=== PATIENT | female | born 1990 | race Hispanic/Latino ===

== ENCOUNTER 2018-05-12 06:31 | Outpatient (CLI) | payer MEDICAID ==
--- NOTE | 2018-05-12 08:39 | ULT ---
PELVIC ULTRASOUND: Date: 05/12/18 COMPARISON: None. HISTORY: Pelvic pain along the edges of the scar that was performed in August 2017. Intermittent pain with intercourse. Vaginal bleeding for 2 months. TECHNIQUE: Multiplanar Aviles scale and color Doppler images were obtained in a transabdominal and transvaginal pe lvic ultrasound. Spectral analysis of the Doppler waveforms of the ovaries were performed. FINDINGS: The uterus is normal size without focal abnormality. The endometrial stripe is normal in thickness, m easuring 8.0 mm. No free fluid is seen in the pelvis. Neither ovary was able to be visualized. A hypo echoic structure is seen in the left aspect of the pelvis measuring 2.2 cm in size. This may represen t a pelvic lymph node. This does not have the appearance of an ovary. No fluid collection is seen memo ng the patient's abdominal scar. IMPRESSION: No significant intrapelvic abnormality. POS: VIANCA
== END 2018-05-12 06:32 | disposition home or self-care (01) ==
LOC: BICULT 06:31
PROVIDERS: ATTEND Advanced Practice Midwife
DX: R10.2 Pelvic and perineal pain (principal)
CPT/HCPCS: 76856

== ENCOUNTER 2018-08-22 15:33 | Outpatient (CLI) | payer MEDICAID ==
--- NOTE | 2018-08-22 17:11 | ULT ---
TRANSABDOMINAL AND TRANSVAGINAL PELVIC ULTRASOUND: 08/22/18 INDICATION: Pelvic pain for six months when lifting something heavy. COMPARISON: Prior exam dated 05/12/18. TECHNIQUE: Aviles scale and color Doppler images were obtained of the pelvis via transabdominal and transvaginal a pproach. FINDINGS: The adnexa were not seen. The uterus measures 7.3 x 3.5 x 5.2 cm. The endometrial stripe measures 0.8 cm. No free fluid is identified. IMPRESSION: 1. Limited ultrasound examination due to bowel gas limiting visualization of the ovaries. 2. Visualized uterus is normal appearing. 3. No free fluid is demonstrated. POS: CET
== END 2018-08-22 15:34 | disposition home or self-care (01) ==
LOC: BICULT 15:33
PROVIDERS: ATTEND Advanced Practice Midwife
DX: R10.2 Pelvic and perineal pain (principal)
CPT/HCPCS: 76856

== ENCOUNTER 2019-05-25 18:26 | Emergency (ER) | payer MEDICAID, OTHER ==
[2019-05-25 20:01] LABS: Bacteria/HPF None Seen HPF (None Seen); Squamous Epithelial 0-3 HPF (0-3); WBC/HPF 0-3 HPF (0-3)
[2019-05-25 20:08] LABS: Bilirubin Negative (Negative); Blood, Urine Trace (Negative); Glucose, Urine (Dipstick) Negative (Negative); Leukocyte Negative (Negative); Nitrite Negative (Negative); Protein, Urine (Dipstick) Negative (Neg-Trace); Urobilinogen 0.2 mg/dL (Less than 2)
[2019-05-25 20:12] LABS: Clarity Clear (Clear)
== END 2019-05-25 20:25 | disposition home or self-care (01) ==
LOC: ERS 18:26
DX: O9A.211 Injury, poisoning and certain other consequences of external causes complicating pregnancy, first trimester (principal); S30.1XXA Contusion of abdominal wall, initial encounter; Z3A.11 11 weeks gestation of pregnancy
CPT/HCPCS: 81003; 81015

== ENCOUNTER 2019-06-04 18:51 | Emergency (ER) | payer OTHER | END 2019-06-04 20:35 | disposition home or self-care (01) | LOC: ERS 18:51 | DX: O98.511 Other viral diseases complicating pregnancy, first trimester (principal); B34.9 Viral infection, unspecified; O99.011 Anemia complicating pregnancy, first trimester; Z3A.12 12 weeks gestation of pregnancy | CPT/HCPCS: 87081; 87430; 87804; 99283 ==

== ENCOUNTER 2019-10-04 16:21 | Day surgery (SDC) | payer OTHER ==
--- NOTE | 2019-10-04 17:35 | PDOC.FPROB ---
FMR OB H&P: HPI - History of Present Illness Chief Complaint: suprapubic pressure History of Present Illness: Pt is a 28 yo at 30.1 wks who presented with suprapubic pressure. She states that the pressure has been present for 1 week but has gotten worse. She denies any radiation of the pain or contractions. She also c/o white vaginal discharge, pain with sex, and vaginal itching. No leakage of fluid or vaginal bleeding. Primary Care Physician: PNC FMR OB H&P: Current - Care : 2 Para: 1 Gestational age: 30.1 Due date: 12/12/19 Dating Criteria: unknown FMR OB H&P: History - Past Medical History PMH: none - OB History OB History: previous ended with CS at 39wks - Surgical History Sx History: CS 2018 FMR OB H&P: Medications - Current Allergies/Adverse Reactions: Allergies Allergy/AdvReac Type Severity Reaction Status Date / Time No Known Allergies Allergy Verified 10/04/19 16:41 FMR OB H&P: ROS - Review of Systems General: denies: fever/chills, fatigue Eyes: reports: floaters. denies: eye pain ENT: denies: nasal congestion, rhinorrhea Cardiovascular: denies: chest pain, palpitation Respiratory: denies: cough, shortness of breath Gastrointestinal: denies: abdominal pain, nausea, vomiting Genitourinary (Female): reports: vaginal discharge. denies: dysuria, polyuria, vaginal bleeding Musculoskeletal: denies: pain, stiffness Neurologic: denies: numbness, syncope Integumentary: denies: itching, rash Breast: denies: skin changes, pain/tenderness Endocrine: denies: polydipsia, polyuria Hematologic/Lymphatic: denies: prolonged or excessive bleeding FMR OB H&P: Vital Signs - Maternal Vital signs: 103/59, 92, 98%, 98.1F - Heart Tones Baseline: 140 Variability: moderate Acceleration: absent Deceleration: absent Category: category 1 FMR OB H&P: Physical Exam - Physical Exam General: NAD HEENT: normocephalic and atraumatic, grossly normal vision, grossly normal hearing Neck: supple, trachea midline Chest: non-tender to palpation Breast: symmetric Heart: RRR, no murmurs/rubs/gallops General: CTAB, no respiratory distress Abdomen: gravid, non-tender Musculoskeletal: normal gait and station, pulses present Neurological: cranial nerves II through XII intact Skin: no rash, good tugor Lymphatic: no unusual bruising or bleeding Psychiatric: normal mood and affect FMR OB H&P: A/P Discussion: Date/Time: 10/04/19 1729 Pt is a 28yo F at 30.1 wks who presents with suprapubic pressure Suprapubic Pressure -likely due to normal changes of -ordered UA Vaginal Discharge -ordered VP3 and GC/Chlamydia This H&P was discussed with [Jeancarlos] and [] who agree with the above documentation and plan. Addendum - Attending - Attending Attestation Date/Time: 10/04/192006 I personally evaluated the patient and discussed the management with Dr. Woodall I agree with the History, Examination, Assessment and Plan documented above with any addition or exceptions noted below - 28 yo @30.1 weeks presents c/o suprapubic pressure x 1 week; worse today. Denies any dysuria or fever. (+) vaginal itching and white discharge. (+) FM. Denies LOF, VB. Afebrile VSS. Exam repeated by me and agree with resident's findings. Category 1 FHTs. Labs: U/A (+) LE, (+) WBC, 1+ bacteria; VP3 (+) BV and cat. A/P: 1) UTI/BV/Cat- stable for discharge; Prescriptions for Amoxil, Flagyl, and Terazol cream.
[2019-10-04 18:40] LABS: Bilirubin Negative (Negative); Blood, Urine Negative (Negative); Clarity Clear (Clear); Glucose, Urine (Dipstick) Normal (Negative); Ketone, Urine Negative (Negative); Leukocyte 250 Leu/uL (Negative); Nitrite Negative (Negative); Protein, Urine (Dipstick) Negative (Neg-Trace); RBC/HPF 0-3 HPF (0-3); Urobilinogen Normal mg/dL (Less than 2)
[2019-10-04 18:49] LABS: Bacteria/HPF 1+ HPF (None Seen); Squamous Epithelial 0-3 HPF (0-3)
[2019-10-04 18:50] LABS: Urine Culture Reflex Yes Yes
== END 2019-10-04 20:20 | disposition home or self-care (01) ==
LOC: L&D/OP 16:21
PROVIDERS: ATTEND Family Medicine
DX: O99.89 Other specified diseases and conditions complicating pregnancy, childbirth and the puerperium (principal); R10.30 Lower abdominal pain, unspecified; O98.813 Other maternal infectious and parasitic diseases complicating pregnancy, third trimester; B37.3 Candidiasis of vulva and vagina; O23.593 Infection of other part of genital tract in pregnancy, third trimester; B96.89 Other specified bacterial agents as the cause of diseases classified elsewhere; O34.219 Maternal care for unspecified type scar from previous cesarean delivery; Z3A.30 30 weeks gestation of pregnancy
CPT/HCPCS: 81001; 87086; 87480; 87491; 87510; 87591; 87660

== ENCOUNTER 2019-12-05 20:26 | Day surgery (SDC) | payer MEDICAID, OTHER ==
[2019-12-05 20:57] VITALS: BMI 31.9
--- NOTE | 2019-12-05 21:59 | PDOC.BPN ---
- Brief Progress Note Encounter Date: 12/05/19 Encounter Time: 21:55 OBGYN Faculty L&D Triage Patient seen by me Discussed with Resident team. 28 yo G1 at 39 weeks with no personal HX of HSV but apparently is on suppression beacuse her partner has a HX. Here with poss CTX. Has noticed moist underwear but no gush of fluid. HX reviewed in detail (see resident notes) NST reactive, irreg CTX/ut irritability Assessment: 39 week patient of the [facility] here for possible labor. , CS x1. Plan: 1. confirm no active lesions (no personal HX). I reviewed ACOG protocol with residents (suppression only for patients with HX not just becuase partner has HX ) 2. SSE 3. Amnisure 4. If no evidence labor or ROM, keep scheduled CS this week
[2019-12-05] MEDS ORDERED: hydrALAZINE 20 MG/ML VIAL SLOW IVP PRN (22:21)
[2019-12-05 22:34] LABS: Amnisure Test No Membranes Rupture (No Rupture)
[2019-12-05 22:35] LABS: Amnisure Internal Control QC ACCEPTABLE (ACCEPTABLE)
--- NOTE | 2019-12-06 00:56 | PDOC.FPROB ---
FMR OB H&P: HPI - History of Present Illness Chief Complaint: Contractions Indentification: 28 y/o @ 39.0 wga dated by LMP History of Present Illness: This is a 28 y/o @ 39.0 wga dated by LMP who presented this evening with contractions that began this AM around 5:30 and last until about 7:30AM today. After the morning, she has been feeling contractions off and on but denied VB, VD, and when asked about LOF, she stated that she noticed this morning her underwear was "wet" but was unsure if this was due to sweat or a true gush of fluid. She has been able to feel baby move today. Denies HTN or DM in this . Does state that her partner has HSV, however, she has not had any symptoms or lesions. She has not been on any PPX of medication. Other than having a UTI, this has been uncomplicated. She has denied urinary symptoms, fever/chills, CP/SOB, MARROQUIN, vision changes/blurry vision. She states that she has a csection planned this week on 12/07. Primary Care Physician: PCP: Jose Elias FMR OB H&P: Current - Care : 2 Para: 1 Gestational age: 39.0 Due date: 12/12/19 - OB Labs HIV: negative RPR: negative HepBsAg: negative Rubella: immune Urine drug screen: negative Gonorrhea: negative Chlamydia: negative FMR OB H&P: History - Past Medical History PMH: none - OB History OB History: - in 2018 due to AOD - Surgical History Sx History: -csection 2018 - Social History Social History: - no tobacco, drug, etoh use - Family History Family History: none FMR OB H&P: Medications - Current Home Medications: Medication Instructions Recorded Confirmed Type Pnv No.95/Ferrous Fum/Folic AC 1 tab PO DAILY 12/05/19 12/05/19 History [ Caplet] Allergies/Adverse Reactions: Allergies Allergy/AdvReac Type Severity Reaction Status Date / Time No Known Allergies Allergy Verified 12/05/19 20:53 FMR OB H&P: ROS - Review of Systems General: denies: fever/chills Eyes: denies: eye pain, vision changes ENT: denies: nasal congestion, rhinorrhea, ear pain Cardiovascular: denies: chest pain, palpitation, edema Respiratory: denies: cough, congestion, shortness of breath Gastrointestinal: denies: abdominal pain, indigestion, bloating, diarrhea, constipation, bright red blood Genitourinary (Female): reports: contractions. denies: incontinence, dysuria, hematuria, polyuria, vaginal discharge, vaginal pain, vaginal bleeding, vaginal pressure Musculoskeletal: denies: pain, stiffness, tenderness Neurologic: denies: numbness, headache FMR OB H&P: Vital Signs - Maternal Vital signs: 111/61 BP, HR 70, RR 12 - Heart Tones Baseline: 140 Variability: moderate Category: category 1 Dora contractions every: initially had 5 contractions 3 min apart, then none FMR OB H&P: Physical Exam - Physical Exam General: NAD, awake, alert and oriented HEENT: normocephalic and atraumatic, PERRLA Neck: supple Chest: non-tender to palpation Heart: RRR, normal S1/S2, no murmurs/rubs/gallops General: CTAB, no respiratory distress, good air movement, no rales/rhonchi, no wheezing, no retractions Abdomen: soft, gravid - Pelvic Exam Vulva: no masses, no lesions, no discharge Cervix: no masses, no lesions, no blood SVE: /-2 Membranes: intact, no fluid noted on sterile speculum exam, physiologic discharge note FMR OB H&P: Results - Labs Lab results: Laboratory Results - last 24 hr 12/05/19 22:03 Amnio Swab Test No Membranes Rupture FMR OB H&P: A/P Discussion: Date/Time: [birth year]06/1954 This is a 28 y/o @ 39.0 wga dated by LMP who presents with feeling contractions today. ## Term - category 1 with minimal/infrequent contractions - sterile spec exam revealed no fluid at cervix - SVE revealed /-2 - amnisure pending - sono from 07/2019 showed large placental garcia behind placenta, Hadlock 66% ## Partner with HSV -denies personal hx of HSV, or current symptoms -pt denies being on PPX medication currently for this ## Anemia of -found on routine 3T labs -continue with vitamins ## Hx of Chorioaminitis -previous pt had intrapartum fever after prolonged ROM This H&P was discussed with Dr. Stockton and Dr. Hernández who agree with the above documentation and plan. Addendum: Patient was checked again 2 hours after initial encounter. SVE was unchanged. No contractions on strip. Category 1. Amnisure negative. Will discharge with ER/labor precautions. Planned for 12/07, advised patient to come back before then if anything changes. Pt agreeable to plan.
== END 2019-12-06 01:50 | disposition home or self-care (01) ==
LOC: L&D/OP 20:26
PROVIDERS: ATTEND Family Medicine
DX: O47.1 False labor at or after 37 completed weeks of gestation (principal); O99.013 Anemia complicating pregnancy, third trimester; D64.9 Anemia, unspecified; O34.219 Maternal care for unspecified type scar from previous cesarean delivery; Z3A.39 39 weeks gestation of pregnancy; Z87.440 Personal history of urinary (tract) infections
CPT/HCPCS: 84112

== ENCOUNTER 2019-12-08 04:42 | Inpatient (IN) | payer OTHER ==
[2019-12-08 05:24] VITALS: BMI 31.9
[2019-12-08] MEDS ORDERED: Ondansetron PF 4 MG/2 ML Vial IVP PRN ×3 (05:28→11:03)
[2019-12-08] MEDS ORDERED: hydrALAZINE 20 MG/ML VIAL SLOW IVP PRN ×2 (05:28→11:03)
[2019-12-08] MEDS ORDERED: Acetaminophen 500 MG TAB PO PRN (05:28)
[2019-12-08] MEDS ORDERED: Promethazine HCl 25 MG/ML VIAL IM PRN ×3 (05:28→11:03)
[2019-12-08] MEDS ORDERED: Bicitra 30 ML UDCUP PO SCH (05:30)
[2019-12-08] MEDS ORDERED: Lactated Ringer's 1,000 ML IV SCH (05:30)
[2019-12-08 05:58] LABS: Hemoglobin 12.2 g/dL (12.0-16.0); Mean Corpuscular HGB CONC 32.7 g/dL (32.0-36.0); Mean Corpuscular Hemoglobin 29.5 pg (27.0-31.0); Mean Corpuscular Volume 90.1 fL (78.0-98.0); Mean Platelet Volume 9.5 fL (7.4-10.4); Platelet Count 168 thou/uL (130-400); RBC Distribution Width 13.3 % (11.5-14.5); Red Blood Cell (RBC) Count 4.12 mill/uL (4.20-5.40); White Blood Cell (WBC) Count 9.8 thou/uL (4.8-10.8)
--- NOTE | 2019-12-08 06:18 | PDOC.FPROB ---
FMR OB H&P: HPI - History of Present Illness Chief Complaint: 28 y/o @ 39.2 wga dated by LMP History of Present Illness: This is a 28 y/o @ 39.2 wga dated by LMP who presented today for repeat LCS. She states that since she was last here on the 12/05, she has been doing well. Feeling contractions occasionally. No CP/SOB, headache, vision changes/ blurry vision/scotomoas. No LOF, VB, VD. No other questions or complaints at this time. Primary Care Physician: SONGC: Jose Elias FMR OB H&P: Current - Care : 2 Para: 1 Gestational age: 39.2 Due date: 12/11 Dating Criteria: LMP - OB Labs HIV: negative RPR: negative HepBsAg: negative Rubella: immune Urine drug screen: negative Gonorrhea: negative Chlamydia: negative FMR OB H&P: History - Past Medical History PMH: -none - OB History OB History: -csection in 2018 due to AOD - Surgical History Sx History: -c section in 2018 - Social History Social History: no tobacco, drug, etoh use - Family History Family History: -unremarkable FMR OB H&P: Medications - Current Home Medications: Medication Instructions Recorded Confirmed Type Pnv No.95/Ferrous Fum/Folic AC 1 tab PO DAILY 12/05/19 12/08/19 History [ Caplet] Allergies/Adverse Reactions: Allergies Allergy/AdvReac Type Severity Reaction Status Date / Time No Known Allergies Allergy Verified 12/05/19 20:53 FMR OB H&P: ROS - Review of Systems General: denies: fever/chills Eyes: denies: eye pain, vision changes, double vision, scotomas ENT: denies: rhinorrhea, ear pain Cardiovascular: denies: chest pain, palpitation Respiratory: denies: cough, congestion, shortness of breath Gastrointestinal: denies: abdominal pain, indigestion, bloating, cramping, vomiting, constipation, bright red blood Genitourinary (Female): reports: contractions. denies: incontinence, dysuria, hematuria, polyuria, vaginal discharge, vaginal pain, vaginal bleeding, vaginal mass/sore, vaginal pressure Musculoskeletal: denies: pain, stiffness, tenderness Integumentary: denies: itching, rash FMR OB H&P: Vital Signs - Maternal Vital signs: Vital Signs - First Documented Temp Pulse Resp BP Pulse Ox 98.3 F 93 16 119/57 L 97 12/08/19 05:18 12/08/19 05:18 12/08/19 05:18 12/08/19 05:18 12/08/19 05:18 - Heart Tones Baseline: 150 Category: category 1 FMR OB H&P: Physical Exam - Physical Exam General: NAD, awake, alert and oriented HEENT: normocephalic and atraumatic, PERRLA, MMM Neck: supple Chest: non-tender to palpation Heart: RRR, normal S1/S2, no murmurs/rubs/gallops General: CTAB, no respiratory distress, good air movement, no rales/rhonchi, no wheezing Abdomen: gravid Musculoskeletal: normal gait and station, pulses present, no misalignment/ asymmetry Skin: no rash, good tugor, capillary refill <2 seconds, no jaundice Psychiatric: intact recent and remote memory, good judgement and insight, normal mood and affect FMR OB H&P: Results - Labs Lab results: Laboratory Results - last 24 hr 12/08/19 05:47 WBC 9.8 RBC 4.12 L Hgb 12.2 Hct 37.2 MCV 90.1 MCH 29.5 MCHC 32.7 RDW 13.3 Plt Count 168 MPV 9.5 FMR OB H&P: A/P Discussion: Date/Time: 12/08/19 0616 This is a 28 y/o @ 39.2 wga dated by LMP who presents with feeling contractions today. ## Term - here for rLCS - category 1 with minimal/infrequent contractions - sono from 07/2019 showed large placental garcia behind placenta, Hadlock 66% - maternal labs neg ## Partner with HSV -denies personal hx of HSV, or current symptoms -pt denies being on PPX medication currently for this ## Anemia of -found on routine 3T labs -continue with vitamins ## Hx of Chorioaminitis -previous pt had intrapartum fever after prolonged ROM Plan: rLCS this AM at 7:30. This H&P was discussed with Dr. Merlos who agree with the above documentation and plan. Addendum - Attending - Attending Attestation Date/Time: 12/08/19 1040 I personally evaluated the patient and discussed the management with Dr. Tony. I agree with the History, Examination, Assessment and Plan documented above with any addition or exceptions noted below.
[2019-12-08 06:41] LABS: HBSAg Index 0.11 S/CO (0-0.99); Hep B Surf Ag Non-Reactive S/CO (NonReactive)
[2019-12-08 06:45] LABS: Syphilis Antibody Nonreactive (Nonreactive); Syphilis Antibody Index 0.07 S/CO (<1.00 Non-Reactive)
[2019-12-08] MEDS ORDERED: CEFAZOLIN 2 GM in Premix Bag 1 BAG IVPB SCH (07:00)
[2019-12-08] MEDS ORDERED: PHENYLEPHRINE-NS 100 MCG/ML 10 ML SYRINGE ONE (07:02)
[2019-12-08] MEDS ORDERED: EPHEDRINE 25 MG/5 ML SYRINGE ONE (07:02)
[2019-12-08] MEDS ORDERED: Ondansetron PF 4 MG/2 ML Vial ONE (07:02)
[2019-12-08] MEDS ORDERED: Oxytocin 10 UNITS/ML VIAL ONE ×2 (07:02→08:40)
[2019-12-08] MEDS ORDERED: Ondansetron HCl/PF 4 MG/2 ML Vial IVP PRN (09:09)
[2019-12-08] MEDS ORDERED: Meperidine HCl/PF 25 MG/ML VIAL SLOW IVP PRN (09:09)
[2019-12-08] MEDS ORDERED: Naloxone HCl 0.4 mg/ml Vial IVP PRN ×2 (09:09)
[2019-12-08] MEDS ORDERED: HYDROmorphone 2 MG/ML VIAL SLOW IVP PRN (09:09)
[2019-12-08] MEDS ORDERED: Naloxone HCl 0.4 mg/ml Vial IV PRN (09:09)
[2019-12-08] MEDS ORDERED: Ketorolac Tromethamine 30 MG/ML VIAL IVP PRN ×2 (09:09→11:44)
[2019-12-08] MEDS ORDERED: L&D-Morphine 4 MG/ML VIAL SLOW IVP PRN (09:09)
[2019-12-08] MEDS ORDERED: Promethazine HCl 25 MG SUPP PR PRN (09:09)
[2019-12-08] MEDS ORDERED: diphenhydrAMINE 50 MG/ML VIAL IVP PRN (09:09)
[2019-12-08] MEDS ORDERED: Ketorolac Tromethamine 30 MG/ML VIAL IVP SCH (09:15)
[2019-12-08] MEDS ORDERED: Communication Order-Pharmacy FS SCH (09:15)
--- NOTE | 2019-12-08 09:51 | PDOC.OPDEL ---
OB Operative/Delivery Note Delivery Dr/Surgeon: FAYE [id number] (continuity), Dimitri PGY2, Gaurang (attending) Pre-Delivery Diagnosis: scheduled section Procedure/Post Delivery Dx: repeat low transverse CS Weeks gestation: 39 (39.3) Anesthesia: spinal - Additional Findings/Plan Placenta delivered: spontaneous findings: low transverse hysterotomy with extension Compilations/Other Findings: Procedure: Repeat low transverse caesarean section Preoperative Diagnosis: 1) Term intrauterine 2) Previous Postoperative Diagnosis: 1) Term intrauterine , delivered 2) Previous Anesthesia: spinal Quantitative Blood Loss: 815 mL Complications: None Specimens: Cord blood sent to lab for blood type. Findings: Grossly normal female infant with Apgars of 7 and 9. Required blow by oxygen briefly. Grossly normal placenta with 3 vessel cord discarded. Drains: Marie to gravity draining clear urine Indications: The patient is a 28 year old female at 39.2 weeks gestation who presents for a repeat scheduled . Procedure in Detail: After risks, benefits, and alternatives were explained to the patient, she gave informed consent. Pre-operative antibiotics included Cefazolin 2 gram IV. The patient was taken to the operating room and spinal anesthesia was initiated. She was placed in the supine position with a left tilt and prepped and draped in usual sterile fashion. A Pfannenstiel incision was made with a scalpel and carried down to the level of the fascia which was sharply nicked. The fascial cut was extended bilaterally with Wallace sissors. The inferior and superior edges of the cut fascial edges were elevated with Antwan clamps and the underlying rectus muscles were sharply and bluntly dissected free. The recti were divided digitally and retracted manually. The peritoneum was entered bluntly and retracted manually. Claude-O retractor was placed. A low transverse incision was made with the scalpel, and the uterus was entered in the midline bluntly. Clear fluid was seen. The hysterotomy was extended manually. The infant was noted to be vertex and was easily delivered by fundal pressure. Mouth and nares were bulb suctioned. Cord clamped and cut and grossly normal female infant was taken to warmer. Cord blood was obtained. Placenta was spontaneously extracted, found to be intact with 3 vessel cord and discarded. The endometrium was curetted with a dry lap x2. The uterus was closed with a running locking #1 Monocryl suture. A small vertical extension in the shape of an oval inferior to hysterotomy was noted near the midline and repaired with running locking #1 Monocryl and oversewn with running locking 0-chromic. Two figure of eight interrupted sutures were placed on left corner and middle of hysterotomy. Uterus was externalized to ensure hemostasis. Following this hemostasis was noted. Posterior portion of the uterus examined and no bleeding areas noted. The uterus was then internalized, and the hysterotomy was again noted to be hemostatic. Arrista hemostatic powder was applied to hysterotomy and surrounding serosa. Bleeders on rectus muscles were cauterized. The fascia was closed with a running non-locking 0-Vicryl suture. The subcutaneous tissue was irrigated, and there were no bleeders. Three interrupted subcutaneous sutures with 3-0 plain gut were placed. The skin was approximated with girma, and a pressure dressing was placed. All counts were correct. The patient tolerated the procedure well and was taken to the recovery room in stable condition. Post delivery plan: routine recovery
[2019-12-08] MEDS ORDERED: Ketorolac Tromethamine 30 MG/ML VIAL ONE (10:02)
[2019-12-08] MEDS ORDERED: Lanolin Ointment 7 GM TUBE TOP PRN (11:03)
[2019-12-08] MEDS ORDERED: Acetaminophen 325 MG TAB PO PRN (11:03)
[2019-12-08] MEDS ORDERED: Bisacodyl 10 MG SUPP PR PRN (11:03)
--- NOTE | 2019-12-08 12:03 | PDOC.BPN ---
- Brief Progress Note Encounter Date: 12/08/19 Encounter Time: 11:55 4-hr Postoperative check S: Pt just transferred to fee clerk/ floor from recovery. Feeling well. Morrow in place. No acute pain. Asks for abdominal binder to use tomorrow. O: VSS Gen: well appearing Lungs: no acute respiratory distress Heart: RRR Abd: soft, nontender, uterus firm and at level of umbilicus Extremities: SCDs on A/P: s/p RLTCS - POD #0. - monitor QBL - routine postop care - d/c morrow at 12 hrs s/p surgery - Clear liquid diet, ADAT - await return of bowel function - toradol for pain in first 24 hrs, switch and follow w/ ibuprofen. - plans to breastfeed.
--- NOTE | 2019-12-08 12:08 | PDOC.BPN ---
- Brief Progress Note Encounter Date: 12/08/19 Encounter Time: 12:00 To whom it may concern, Mrs. Rekha Mosley, daughter of Papa Hartman, was hospitalized for surgery of section starting on 12/08/2019. The patient has requested a note specifying her dates of admission for her mother to provide to her employer. Mother of the patient is providing child development director for the patient while the patient is hospitalized. Anticipate the patient to be hospitalized for 3 days: from 12/08/2019 to 12/10/2019. Mother of patient may return to work on Saturday, December 11, 2019. Thank you. Please call [phone]. Rosy Mosley MD [facility]
[2019-12-08] MEDS ORDERED: Ibuprofen 800 MG TAB PO SCH (14:00)
[2019-12-08] MEDS ORDERED: HYDROcodone/Acetaminophen 5/325 mg Tablet PO PRN ×2 (22:00)
[2019-12-09 08:20] LABS: Hemoglobin 11.2 g/dL (12.0-16.0); Mean Corpuscular HGB CONC 33.3 g/dL (32.0-36.0); Mean Corpuscular Hemoglobin 30.6 pg (27.0-31.0); Mean Corpuscular Volume 91.8 fL (78.0-98.0); Platelet Count 153 thou/uL (130-400); RBC Distribution Width 13.2 % (11.5-14.5); Red Blood Cell (RBC) Count 3.66 mill/uL (4.20-5.40)
[2019-12-09] MEDS ORDERED: Ibuprofen 800 MG TAB ONE (09:18)
[2019-12-09] MEDS: Ibuprofen 800 MG TAB PO SCH ×3 (10:18→22:24)
[2019-12-09] MEDS: Prenatal Vitamin 1 TAB PO SCH (10:18)
[2019-12-09] MEDS ORDERED: Adacel (T-DAP) 0.5 ML SYRINGE IM ONE (11:03)
[2019-12-09] MEDS: Docusate Calcium (SURFAK) 240 MG CAP PO SCH (22:24)
[2019-12-10] MEDS: Ibuprofen 800 MG TAB PO SCH ×2 (06:23→13:44)
--- NOTE | 2019-12-10 07:21 | PDOC.OBPPN ---
FMR OB PN: Subj - Interval History Hospital Day: 3 Day: 2 Chief Complaint: occasional burning around incision site Indentification: G2 now P2002 PP day #2 s/p rLTCS Interval History: well. Voiding, stooling & ambulating normally. VS WNLs. FMR OB PN: Obj - Maternal Vital signs: BP: 97/54 HR: 87 RR: 18 Tmax: 99.0F Pox: 97% on RA Wt: 76 kg - Urine output I&O: 12/09/19 12/10/19 12/11/19 06:59 06:59 06:59 Intake Total 1480 650 Output Total 2301 2 Balance -821 648 - Lochia Lochia: minimal - Pain Management Pain scale: 0 Intervention: oral medication FMR OB PN: Exam - Physical Exam General: NAD, awake, alert and oriented HEENT: normocephalic and atraumatic, MMM, grossly normal vision, grossly normal hearing Neck: supple, FROM Heart: RRR, normal S1/S2, no murmurs/rubs/gallops, no edema General: CTAB, no respiratory distress Abdomen: soft, fundus(cm) (firm just below umbilicus), bowel sound present Musculoskeletal: FROM in all four extremities Neurological: cranial nerves II through XII intact, sensation to pain,touch and proprioception grossly normal, no focal deficit Skin: no rash, good tugor : incision healing well, no erythema, no edema, no drainage, appropriately tender Lymphatic: no unusual bruising or bleeding Psychiatric: intact recent and remote memory, good judgement and insight, normal mood and affect - Pelvic Exam : no discharge, no edema, normal lochia FMR OB PN: Data - Labs Lab results: Laboratory Results - last 24 hr 12/09/19 04:48 WBC 13.0 H RBC 3.66 L Hgb 11.2 L Hct 33.6 L MCV 91.8 MCH 30.6 MCHC 33.3 RDW 13.2 Plt Count 153 MPV 9.0 FMR OB PN: A/P - Problem List (1) care following delivery Status: Acute Code(s): Z39.2 - ENCOUNTER FOR ROUTINE FOLLOW-UP Disposition: 28YO G2 now P2002 who is PP day #2 s/p rLTCS @ 39.3 WGA w/o complications. PP day #2 s/p term rLTCS: Patient did well overnight & over course of day yesterday. Required a few extra doses of pain medication but was ambulatory, tolerating PO, voiding and passing gas without issues. VS WNLs. Breast feeding well. Continue routine post-op & PP care. Elevated temperature post-op: Tmax of 100.1F yesterday @0730 but nothing higher since. Abdomen less tender on exam today. Continue routine vital checks. Dispo: D/c home today w/ staple removal before d/c. To f/u @ [facility] in 1 week for incision check & PP visit. Discussion: Date/Time: 12/10/19 07 This H&P was discussed with Dr. Larios who agrees with the above documentation and plan. Addendum - Attending - Attending Attestation Date/Time: 12/11/19 1416 I personally evaluated the patient and discussed the management with Dr. Moctezuma. I agree with the History, Examination, Assessment and Plan documented above with any addition or exceptions noted below. Pain controlled. Afeb. Incision C/D/I. [place] out today. Stable for d/c home.
[2019-12-10 07:39] VITALS: BP 100/58; TEMP 98
[2019-12-10] MEDS: Docusate Calcium (SURFAK) 240 MG CAP PO SCH (09:25)
[2019-12-10] MEDS: Prenatal Vitamin 1 TAB PO SCH (09:25)
== END 2019-12-10 14:12 | disposition home or self-care (01) | DRG 788 ==
LOC: L&D 04:42 → 3SE 11:16
PROVIDERS: ADMIT Family Medicine; ATTEND Family Medicine
PROC: 10D00Z1 Extraction of Products of Conception, Low, Open Approach (ICD-10-PCS; principal; 2019-12-08)
DX: O34.211 Maternal care for low transverse scar from previous cesarean delivery (principal); Z3A.39 39 weeks gestation of pregnancy; Z37.0 Single live birth; O99.02 Anemia complicating childbirth; D64.9 Anemia, unspecified; Z20.828 Contact with and (suspected) exposure to other viral communicable diseases
CPT/HCPCS: 36415; 51702; 85027; 86780; 86850; 86900; 86901; 87340; J0690; J1885; J2270; J2405; J2590

== ENCOUNTER 2019-12-18 18:44 | Emergency (ER) | payer OTHER ==
[2019-12-18] MEDS ORDERED: Bacitracin 1 PK ONE (19:43)
== END 2019-12-18 19:57 | disposition home or self-care (01) ==
LOC: ERS 18:44
DX: T81.31XA Disruption of external operation (surgical) wound, not elsewhere classified, initial encounter (principal)
CPT/HCPCS: 99283